=== PATIENT | male | born 1980 | race Caucasian/White ===

== ENCOUNTER 2024-11-15 14:40 | Emergency (ER) | payer OTHER ==
[~2024-11-15] VITALS: Ht 177.8 cm; Wt 104.3 kg
[2024-11-15 16:12] VITALS: BP 142/94; O2SAT 99
== END 2024-11-15 16:14 | disposition home or self-care (01) ==
LOC: ER 14:40
DX: S93.491A Sprain of other ligament of right ankle, initial encounter (principal); Z88.7 Allergy status to serum and vaccine; W18.39XA Other fall on same level, initial encounter; Y93.89 Activity, other specified; Y92.89 Other specified places as the place of occurrence of the external cause; Y99.8 Other external cause status
CPT/HCPCS: A4606; A4663